=== PATIENT | female | born 1990 | race Caucasian/White ===

== ENCOUNTER 2021-01-07 02:40 | Emergency (ER) | payer OTHER ==
[~2021-01-07] VITALS: Ht 165.1 cm; Wt 81.6 kg
--- NOTE | 2021-01-07 04:29 | NUR ---
PT CAME IN FOR LEFT SIDE OF FACE PAIN 10/10 PAINFUL TO CHEW PER PATIENT.
[2021-01-07 04:38] VITALS: BP 137/83
[2021-01-07] MEDS ORDERED: OXYC-473 PO (04:52)
[2021-01-07] MEDS ORDERED: PENI500T PO (04:52)
[2021-01-07] MEDS ORDERED: PENICILLIN V POTASSIUM 500 MG TABLET PO ONE ×2 (05:00→05:12)
[2021-01-07] MEDS ORDERED: HYDROCODONE/APAP 5/325MG TABLET PO ONE (05:00)
[2021-01-07] MEDS ORDERED: HYDROCODONE/APAP 5/325MG TABLET ONE (05:12)
== END 2021-01-07 05:09 | disposition home or self-care (01) ==
LOC: ER 02:40
DX: K08.89 Other specified disorders of teeth and supporting structures (principal)

== ENCOUNTER 2022-04-06 18:43 | Emergency (ER) | payer OTHER ==
[~2022-04-06] VITALS: Ht 165.1 cm; Wt 81.6 kg
[~2022-04-06 18:43] MED LIST: OXYC-473 PO; PENI500T PO
[2022-04-06 19:20] VITALS: BP 136/80
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
--- NOTE | 2022-04-06 21:31 | NUR ---
Maxim warner in EDM - 04/06/22 at 2209 by [email or web address] Patient eloped from [facility] FELECIA BORJA notified.
[2022-04-06] MEDS ORDERED: HYDR-3972 PO (22:04)
[2022-04-06] MEDS ORDERED: TDAP [DIPH/PERTUSSIS/TET] 0.5 ML VIAL IM ONE ×2 (22:09→22:30)
[2022-04-06] MEDS ORDERED: HYDROCODONE/APAP 5/325MG TABLET ONE (22:12)
[2022-04-06] MEDS ORDERED: IBUPROFEN 400 MG TABLET ONE (22:19)
[2022-04-06] MEDS ORDERED: HYDROCODONE/APAP 5/325MG TABLET PO ONE (22:30)
[2022-04-06] MEDS ORDERED: IBUPROFEN 400 MG TABLET PO ONE (22:30)
--- NOTE | 2022-04-06 22:44 | NUR ---
Patient discharged to home in stable condition. Written and verbal after care instructions given. Patient verbalizes understanding of instruction.
== END 2022-04-06 22:44 | disposition home or self-care (01) ==
LOC: ER 19:42
DX: S42.022A Displaced fracture of shaft of left clavicle, initial encounter for closed fracture (principal); S60.512A Abrasion of left hand, initial encounter; S60.511A Abrasion of right hand, initial encounter; Z79.899 Other long term (current) drug therapy; V29.99XA Rider (driver) (passenger) of other motorcycle injured in unspecified traffic accident, initial encounter; Y93.89 Activity, other specified; Y92.89 Other specified places as the place of occurrence of the external cause; Y99.8 Other external cause status
CPT/HCPCS: 73030-TC; 90715